=== PATIENT | female | born 1965 | race Caucasian/White ===

== ENCOUNTER → 2020-04-28 | Outpatient (CLI) | payer BC ==
--- NOTE | 2020-04-28 17:59 | P.HPBAR ---
Bariatric H&P - History & Physicial H&P Date: 04/28/20 History & Physicial: Visit/CC: Initial Visit Patient initial contact: Initial weight: 112.236 kg Initial weight in pounds: 247.44 Height: 5 ft 9 in Initial BMI: 36.5 Last weight: Current weight: 112.236 kg Current weight in pounds: 247.44 Current BMI: 36.5 [place] body weight (based on NIH guidelines): 65.771 kg Excess body weight loss: 0.0% The patient is a 54 year-old F who presents for Bariatric Assessment. Patient's symptoms presents to the bariatric clinic for a new evaluation for possible weight loss surgery. Patient is interested in sleeve gastrectomy. She is friends with a previous sleeve gastrectomy patient of mine. Patient suffers from GERD, sleep apnea. BMI 36.5. Denies history of DVT or dysphagia in the past. Patient denies tobacco use. No history of upper abdominal surgeries or hernias. Patient does require seven-month supervised weight loss. Review of Systems The patient denies any acute changes in vision or hearing, no dysphagia or odynophagia, no chest pain or shortness of breath, no dysuria or hematuria, no headache, no runny nose, no rectal bleeding or melena, no unexplained weight loss Past Medical History Past Medical History: GERD/Reflux, Sleep Apnea/CPAP/BIPAP History of Any Multi-Drug Resistant Organisms: None Reported Past Surgical History: Appendectomy, Section, Orthopedic Surgery Past Anesthesia/Blood Transfusion Reactions: No Reported Reaction Past Psychological History: ADD/ADHD, Anxiety Smoking Status: Never smoker Past Alcohol Use History: None Reported Past Drug Use History: None Reported Surgical - Exam Vital Signs Temp Pulse Resp BP 98.8 F 93 16 129/83 04/28/20 14:12 04/28/20 14:12 04/28/20 14:12 04/28/20 14:12 Physical exam: General: Well-developed, well-nourished HEENT: Normocephalic, sclerae nonicteric Abdomen: Nontender, nondistended Extremities: No edema Neuro: Alert and oriented Bariatric Assessment & Plan (1) Obesity (BMI 30-39.9) Narrative/Plan: Both surgical and nonoperative weight loss methods discussed with the patient. Risks and benefits of both gastric bypass and sleeve gastrectomy discussed in detail as well. Patient remains interested in sleeve gastrectomy at this time. We'll tentatively plan upper endoscopy 3-4 months from now. Continue supervised weight loss visits. Plan follow up in the bariatric clinic after her EGD is performed. Status: Acute Bariatric Checklist Checklist: Plan: Checklist: EGD: 1. Hiatal hernia: 2. H. Pylori: HgbA1c: Vitamin D: Smoking: Never smoker Primary care physician referral: Dr. Leung/[facility] Psychiatry clearance: Cardiology clearance: Sleep study: Diet journal: VTE risk score: VTE risk level: Rehab needs at discharge:
[2020-04-29 10:14] VITALS: BP 129/83; PULSE 93; RESP 16; TEMP 98.8; BMI 36.5
== END | disposition home or self-care (01) ==
LOC: BARWHC3 13:41
PROVIDERS: ATTEND Surgery
DX: E66.9 Obesity, unspecified (principal); Z68.30 Body mass index [BMI] 30.0-30.9, adult
CPT/HCPCS: 99201